=== PATIENT | female | born 1955 | race Caucasian/White ===

== ENCOUNTER 2018-02-03 10:54 | Emergency (ER) | payer OTHER ==
[~2018-02-03] VITALS: Ht 165.1 cm; Wt 61.2 kg
[~2018-02-03 10:54] MED LIST: FISH OIL 1,2001 EACH PO; GABA300 PO; Methimazole5 MG PO; NEPHROCAP; Zovirax800 MG PO
[2018-02-03] MEDS ORDERED: Ultram50 MG PO (11:58)
== END 2018-02-03 12:00 | disposition home or self-care (01) ==
LOC: ER 10:54
DX: M25.561 Pain in right knee (principal); Z79.899 Other long term (current) drug therapy; F17.210 Nicotine dependence, cigarettes, uncomplicated
CPT/HCPCS: 73564; 99283

== ENCOUNTER 2018-03-14 13:38 | Emergency (ER) | END 2018-03-14 15:50 | disposition home or self-care (01) ==

== ENCOUNTER 2018-03-21 08:48 | Day surgery (SDC) | payer OTHER ==
[~2018-03-21 08:48] MED LIST changes: +Ultram50 MG PO
== END 2018-03-21 22:40 | disposition home or self-care (01) ==
LOC: RAD 08:48
PROC: BP3MYZZ Magnetic Resonance Imaging (MRI) of Left Wrist using Other Contrast (ICD-10-PCS; principal; 2018-03-21)
DX: S63.592A Other specified sprain of left wrist, initial encounter (principal); M19.032 Primary osteoarthritis, left wrist
CPT/HCPCS: 25246; 73222; 77002; A9577; Q9967

== ENCOUNTER 2018-03-23 09:29 | Emergency (ER) | payer OTHER ==
[~2018-03-23] VITALS: Ht 162.6 cm; Wt 61.2 kg
== END 2018-03-23 10:08 | disposition home or self-care (01) ==
LOC: ER 09:29
DX: S61.215D Laceration without foreign body of left ring finger without damage to nail, subsequent encounter (principal); X58.XXXD Exposure to other specified factors, subsequent encounter; F17.210 Nicotine dependence, cigarettes, uncomplicated; Z79.899 Other long term (current) drug therapy
CPT/HCPCS: 99281

== ENCOUNTER 2018-07-16 11:15 | Emergency (ER) | payer OTHER ==
[~2018-07-16] VITALS: Ht 162.6 cm; Wt 60.3 kg
[2018-07-16 12:05] LABS: BASOPHILS ABSOLUTE AUTO 0.02 K/mm3 (0.00-0.23); BASOPHILS PERCENT AUTO 0 % (0-2); EOSINOPHILS ABSOLUTE AUTO 0.07 K/mm3 (0.00-0.68); EOSINOPHILS PERCENT AUTO 1 % (0-6); Hematocrit 41.2 % (33.0-51.0); Hemoglobin 13.6 g/dL (11.5-16.0); IMMATURE GRAN ABSOLUTE AUTO 0.02 K/mm3 (0.00-0.10); IMMATURE GRAN PERCENT AUTO 0 % (0-1); LYMPHOCYTES ABSOLUTE AUTO 2.31 K/mm3 (0.84-5.20); LYMPHOCYTES PERCENT AUTO 36 % (21-46); MONOCYTES ABSOLUTE AUTO 0.58 K/mm3 (0.16-1.47); MONOCYTES PERCENT AUTO 9 % (4-13); Mean Corpuscular HGB 31.8 pg (26.0-34.0); Mean Corpuscular Volume 96 fL (80-100); Mean Platelet Volume 10.9 fL (9.1-12.4); NEUTROPHILS ABSOLUTE AUTO 3.51 K/mm3 (1.96-9.15); NEUTROPHILS PERCENT AUTO 54 % (41-73); Platelet Count 295 K/mm3 (150-400); RDW Coefficient Variation 14.5 % (11.7-14.2); RDW Standard Deviation 51.5 fL (35.1-46.3); Red Blood Cell Count 4.28 M/mm3 (3.80-5.20); White Blood Cell Count 6.51 K/mm3 (4.00-11.30)
[2018-07-16 12:16] LABS: Alanine Aminotransfer (ALT/SGP 25 U/L (12-78); Albumin, Blood 3.7 g/dL (3.4-5.0); Albumin/Globulin Ratio 1.2 (0.8-1.8); Alk Phos 87 U/L (50-136); Anion Gap 7 mmol/L (6-16); Aspartate Aminotrans (AST/SGOT 18 U/L (12-37); Bilirubin, Total 0.4 mg/dL (0.1-1.0); Blood Urea Nitrogen 14 mg/dL (8-24); Bun/Creatinine Ratio 22.3 (12.0-20.0); CO2, Blood 27 mmol/L (21-32); Calcium, Blood 9.2 mg/dL (8.5-10.1); Chloride, Blood 107 mmol/L (98-108); Creatinine, Blood 0.63 mg/dL (0.40-1.00); Globulin, Blood 3.2 g/dL (2.2-4.0); Glomerular Filtration Rate >60 (60-); Glucose, Blood 95 mg/dL (70-99); Potassium, Blood 3.9 mmol/L (3.5-5.5); Sodium, Blood 141 mmol/L (136-145); Total Protein, Blood 6.9 g/dL (6.4-8.2)
[2018-07-16 14:44] LABS: Appearance, Urine Clear (Clear); Bilirubin, Urine Neg (Neg); Blood, Urine Neg (Neg); Color, Urine Yellow (P-Yellow); Glucose Qualitative, Urine Neg (Neg); Ketones, Urine Neg (Neg); Leukocyte Esterase, Urine 1+ (Neg); Nitrite, Urine Pos (Neg); Protein, Urine Neg (Neg); Urobilinogen, Urine NORM (Normal)
[2018-07-16 14:55] LABS: Bacteria Mod /hpf; Red Blood Cells, Urine 0-2 /hpf (0-2); Squamous Epithelial Cells Few /hpf (Few)
[2018-07-16] MEDS ORDERED: Zofran4 MG PO (15:14)
[2018-07-16] MEDS ORDERED: KETO10 PO (15:14)
[2018-07-16] MEDS ORDERED: Macrobid 100 M100 MG PO (15:14)
== END 2018-07-16 15:42 | disposition home or self-care (01) ==
LOC: ER 11:15
PROVIDERS: Emergency Medicine
DX: K80.50 Calculus of bile duct without cholangitis or cholecystitis without obstruction (principal); F17.210 Nicotine dependence, cigarettes, uncomplicated
CPT/HCPCS: 36415; 76705; 80053; 81001; 83690; 85025; 87077; 87086; 87186; 96374; 96375; 99284-25; J1885; J2405

== ENCOUNTER → 2019-04-24 | Outpatient (CLI) | payer OTHER ==
[~2019-04-24] MED LIST changes: +KETO10 PO; +Macrobid 100 M100 MG PO; +Zofran4 MG PO
== END | disposition home or self-care (01) ==
LOC: LAB SHORT 13:07 → LAB 13:07 → LAB FUT 04-14 09:00
DX: R10.13 Epigastric pain (principal)
CPT/HCPCS: 87338

== ENCOUNTER 2021-02-25 07:53 | Day surgery (SDC) | payer OTHER ==
[~2021-02-25] VITALS: Ht 162.6 cm; Wt 63.9 kg
[~2021-02-25 07:53] MED LIST changes: +IBUP800 PO; +TRAM50 PO
--- NOTE | 2021-02-25 10:49 | NUR ---
02/25/21 [place]ftaly9 Dwain Sotomayor PT RESTING ON RECLINER. C/O CRAMPING PAIN ON OPERATIVE ARM 06/27. PT VS WNL. WILL CONTINUE TO MONITOR. PT TOLERATING SNACKS, PT COMMUNICATES WELL.
== END 2021-02-25 11:47 | disposition home or self-care (01) ==
LOC: ORSCSDS 07:53
PROVIDERS: Orthopaedic Surgery
PROC: 0LB50ZZ Excision of Right Lower Arm and Wrist Tendon, Open Approach (ICD-10-PCS; principal; 2021-02-25 09:15)
PROC: 0RQS0ZZ Repair Right Carpometacarpal Joint, Open Approach (ICD-10-PCS; principal; 2021-02-25 09:15)
PROC: 0LX70ZZ Transfer Right Hand Tendon, Open Approach (ICD-10-PCS; principal; 2021-02-25 09:15)
DX: M18.11 Unilateral primary osteoarthritis of first carpometacarpal joint, right hand (principal); M67.431 Ganglion, right wrist; F17.210 Nicotine dependence, cigarettes, uncomplicated; E05.00 Thyrotoxicosis with diffuse goiter without thyrotoxic crisis or storm; F41.9 Anxiety disorder, unspecified; Z79.899 Other long term (current) drug therapy
CPT/HCPCS: A9270; C1713; J0690; J1100; J1885; J2250; J2405; J2704; J2795; J3010; J7120

== ENCOUNTER 2021-06-19 12:24 | Emergency (ER) | payer OTHER ==
[~2021-06-19] VITALS: Ht 162.6 cm; Wt 63.5 kg
[2021-06-19] MEDS ORDERED: Percocet 5-3251 EACH PO (14:04)
== END 2021-06-19 15:04 | disposition home or self-care (01) ==
LOC: ER 12:24
DX: S92.041A Displaced other fracture of tuberosity of right calcaneus, initial encounter for closed fracture (principal); S92.011A Displaced fracture of body of right calcaneus, initial encounter for closed fracture; F17.210 Nicotine dependence, cigarettes, uncomplicated; Z88.8 Allergy status to other drugs, medicaments and biological substances; W11.XXXA Fall on and from ladder, initial encounter
CPT/HCPCS: 29515; 72100; 73700; 99284-25; A9270